=== PATIENT | female | born 1940 | race Caucasian/White ===

== ENCOUNTER 2017-07-15 07:02 | Observation (INO) | payer MEDICARE ==
[2017-07-15] VITALS (8 sets, daily range): BP systolic 101–151; BP diastolic 44–71
[~2017-07-15] VITALS: Ht 162.6 cm; Wt 42.2 kg
[~2017-07-15 07:02] MED LIST: ACTIGALL300 MG PO; ALENDRONATE70 MG PO; ALLEGRA180 MG PO; ALOE VERA500 MG PO; ALPRAZOLAM0.5 MG PO; AMITIZA24 MCG PO; AMLODIPINE2.5 MG PO; ASPIRIN81 MG PO; ATENOLOL25 MG PO; ATENOLOL50 MG PO; B6 FOLIC ACD PO; BENADRYL25 MG PO; BLACK COHOSH20 MG PO; CALCIUM600 M3 OR; CARAFATE PO; CIPROFLOXACN500 MG PO; CLARITHROMYC500 MG PO; CLONIDINE0.1 MG PO; COQ10100 MG PO; CORTISPORIN OTI10 ML AD; CORTISPORIN OTI10 ML AU; CYMBALTA30 MG PO; D3 MAXIMUM5000 UNI1; DAILY MULTIPLE1 TAB PO; DEPO-MEDROL80 MG/ML IM; DOXYCYCL HYC100 MG PO; FISH OIL1 CAP; FISH OIL1000 M1 PO; FLEXERIL OR; GLUCOSAMINE1000 M1 OR; GLUCOSAMINE1000 M1 PO; HAIR SKIN & NAI1 CHW; HYDROCO/APAP1 T11 PO; HYDROCODONE/ACE1 TA1 PO; HYDROCORT AC30 MG RE; HYDROCORTISONE2.5 % RE; HYDROXYZ HCL25 MG PO; LORTAB 5/3255 MG PO; MAALOX ADV1 CHW PO; MAGNACAPS100 MG OR; MAGNESIUM 250 M1 TAB PO; MEDDOSEPAK PO; MILK OF MAG30 ML/UDC PO; MILK THISTL2 PO; MIRALAX3350 NF PO; MULTIVITAM10 OR; MURO 1282 % OU; PANTOPRAZOLE SO40 MG PO; PRESERVISION PO; PRILOSEC20 MG/CAP PO; PRILOSEC40 MG PO; PROAIR HFA IN; PROBIOTI2; PROCARDIA XL30 MG PO; PROCTOSOL HC2.5 % RE; PROCTOSOL RE; SOLU-MEDROL125 MG PO; TENORMIN PO; TIZANIDINE4 MG PO; TRAMADOL HCL50 MG PO; TURMERIC CURCU500 MG PO; TYLENOL 500MG TAB PO; TYLENOL500 MG PO; ULTRAM50 MG PO; VALERIAN ROOT250 MG PO; VICODIN ES1 TAB OR; VICODIN1 TAB PO; VITAMIN B-12500 MCG PO; VITAMIN B6250 MG OR; VITAMIN C1000 MG OR; VITAMIN C500 M6 PO; VITAMIN D1000 UNI1 OR; VITAMIN D1000 UNIT PO; XANAX0.5 MG PO; ZANAFLEX4 M2 PO; ZESTRIL/PRINIV2.5 MG PO; ZINC50 M1 PO; ZITHROMAX500 MG PO; ZOSTAVAX SC; [UNRECOGNIZED DRUG - OTHER] PO; [UNRECOGNIZED DRUG - OTHER] RE
[2017-07-16 03:26] VITALS: BP 106/55
[2017-07-16 08:19] VITALS: BP 108/52
[2017-07-16 08:38] VITALS: BP 108/52
== END 2017-07-16 13:48 | disposition home or self-care (01) ==
LOC: ORM 07:02 → MS2 11:35
PROVIDERS: ADMIT Surgery; ATTEND Surgery
PROC: 0FT44ZZ Resection of Gallbladder, Percutaneous Endoscopic Approach (ICD-10-PCS; principal; 2017-07-15)
PROC: 0FB04ZX Excision of Liver, Percutaneous Endoscopic Approach, Diagnostic (ICD-10-PCS; 2017-07-15)
DX: K81.1 Chronic cholecystitis (principal); K74.0 Hepatic fibrosis; I10 Essential (primary) hypertension; F41.9 Anxiety disorder, unspecified
CPT/HCPCS: J1100; J2710

== ENCOUNTER 2018-01-22 12:09 | Day surgery (SDC) | payer MEDICARE ==
[~2018-01-22 12:09] MED LIST changes: +LORTAB5 PO
[2018-01-22] MEDS ORDERED: PREDNISODT10 PO (13:18)
[2018-01-22] MEDS ORDERED: PREDNISONE10 MG PO (13:19)
[2018-01-22 15:08] VITALS: BP 145/79
== END 2018-01-22 15:23 | disposition home or self-care (01) ==
LOC: ENDO 12:09
PROVIDERS: ATTEND Internal Medicine Gastroenterology
PROC: 0DB98ZX Excision of Duodenum, Via Natural or Artificial Opening Endoscopic, Diagnostic (ICD-10-PCS; principal; 2018-01-22)
DX: K29.70 Gastritis, unspecified, without bleeding (principal); K25.9 Gastric ulcer, unspecified as acute or chronic, without hemorrhage or perforation; K21.9 Gastro-esophageal reflux disease without esophagitis; D64.9 Anemia, unspecified; R19.7 Diarrhea, unspecified; K57.90 Diverticulosis of intestine, part unspecified, without perforation or abscess without bleeding; R79.89 Other specified abnormal findings of blood chemistry; I10 Essential (primary) hypertension; E78.00 Pure hypercholesterolemia, unspecified; K44.9 Diaphragmatic hernia without obstruction or gangrene; D13.0 Benign neoplasm of esophagus; Z87.11 Personal history of peptic ulcer disease

== ENCOUNTER 2018-02-08 16:50 | Observation (INO) | payer MEDICARE ==
[~2018-02-08] VITALS: Ht 160 cm; Wt 44.8 kg
--- NOTE | 2018-02-08 15:35 | NUR ---
RECEIVED PT A DIRECT ADMIT FROM DR. COLE'S OFFICE. PT ALERT AND ORIENTED. SKIN WARM AND DRY COLOR PINK. ASSESSMENT COMPLETED. NO RESP. DISTRESS NOTED. ROOM ARRANGEMENT EXPLAINED. CALL LIGHT WITHIN REACH.
[~2018-02-08 16:50] MED LIST changes: +PREDNISODT10 PO; +PREDNISONE10 MG PO
[2018-02-08 17:03] VITALS: BP 132/64
[2018-02-08 18:30] LABS: HEMATOCRIT 36.9 % (37.0-47.0); HEMOGLOBIN 12.3 g/dl (12.0-16.0); IMMATURE GRANULOCYTES 0.4 % (0.0-1.0); MEAN CELL VOLUME 100.5 fL CALC (80.0-100.0); MEAN CORPUSCULAR HGB 33.5 pG CALC (26.0-32.0); MEAN CORPUSCULAR HGB CONC 33.3 g/L CALC (32.0-36.0); NEUT# 4.18 thou/uL (2.00-7.15); RED BLOOD COUNT 3.67 mill/uL (4.20-5.60); RED CELL DISTRI WIDTH 13.2 % (11.5-15.5)
[2018-02-08 18:38] LABS: ANION GAP 14 (6-22 (CALC)); BUN 15 mg/dL (8-23); BUN/CREATININE RATIO 18 (12-20 (CALC)); CARBON DIOXIDE 28 mmol/l (22-30); CHLORIDE 101 mmol/l (95-108); CREATININE 0.8 mg/dL (0.5-1.0); GFR > 60 ML/MIN (>=60 (CALC)); GFR FOR AFR.AMER. > 60 ML/MIN (>=60 (CALC)); POTASSIUM 4.6 mmol/l (3.5-5.1); SODIUM 139 mmol/l (137-146)
[2018-02-08 19:30] VITALS: BP 137/64
--- NOTE | 2018-02-08 20:00 | NUR ---
PATIENT RESTING IN BED AT THIS TIME-AWAKE ALERT AND ORIENTEDX3. COLOR IS PALE. NEW IV SITE STARTED TO LEFT UPPER ARM-#22 GAUGE WITH GOOD BLOOD RETURN. PATIENT WITH C/O BACK PAIN FROM A FALL SHE HAD LAST THURSDAY. STATES SOME RELIEF FROM PAIN MEDS GIVEN EARLIER. SAFETY PRECAUTIONS REINFORCED. CALL LIGHT IN REACH. WILL CONT TO MONITOR.
--- NOTE | 2018-02-08 21:00 | NUR ---
EKG DONE AT BEDSIDE. PATIENT TO RADIOLOGY VIA WHEELCHAIR AND BACK FOR CXR AND LS-SPINE. PATIENT MIN ASSIST TO BR AND URINE SPEC OBTAINED AND SENT TO LAB. CALL LIGHT IN REACH. WILL CONT TO MONITOR.
--- NOTE | 2018-02-08 22:00 | NUR ---
PATIENT RESTING IN BED. C/O BACK PAIN AND MEDICATED WITH DEMEROL 25MG IVP ORDERED FOR PAIN. CALL LIGHT IN REACH. WILL CONT TO MONITOR.
[2018-02-08 22:15] LABS: URINE BILIRUBIN - DIPSTICK NEGATIVE (NEGATIVE); URINE BLOOD DIPSTICK NEGATIVE (NEGATIVE); URINE COLOR YELLOW; URINE GLUCOSE - DIPSTICK NEGATIVE (NEGATIVE); URINE KETONE NEGATIVE (NEGATIVE); URINE LEUK ESTERASE NEGATIVE (NEGATIVE); URINE NITRITE - DIPSTICK NEGATIVE (Negative); URINE PROTEIN - DIPSTICK NEGATIVE (NEG-TRACE); URINE UROBILINOGEN - DIPSTICK 0.2 E.U./dL (0.2)
[2018-02-08 22:16] LABS: URINE CLARITY CLEAR
--- NOTE | 2018-02-08 23:00 | NUR ---
PATIENT MEDICATED WITH XANAX .5MG PO PER REQUEST-STATES THAT SHE TAKES IT AT HOME TO HELP HER SLEEP. SAFETY PRECAUTIONS REINFORCED. CALL LIGHT IN REACH. WILL CONT TO MONITOR.
--- NOTE | 2018-02-09 01:00 | NUR ---
PATIENT APPEARS SLEEPING IN BED AT THIS TIME POSITIONED ON HER SIDE WITH EYES CLOSED. CALL LIGHT IN REACH. WILL CONT TO MONITOR.
--- NOTE | 2018-02-09 03:33 | NUR ---
PATIENT MEDICATED FOR LOW BACK PAIN-9/10 ON PAIN SCALE WITH LORTAB 5/325MG PO. PATIENT ASKING FOR ANOTHER XANAX-INSTRUCTED THAT THE XANAX IS [id number] Q8H AND THAT SHE RECIEVED IT AT 2300 LAST NIGHT-TOO EARLY. STATES UNDERSTANDING AND WILL TALK WITH MD IN THE AM. CALL LIGHT IN REACH. WILL CONT TO MONITOR.
[2018-02-09 04:40] VITALS: BP 131/68
[2018-02-09 06:01] LABS: HEMATOCRIT 35.2 % (37.0-47.0); HEMOGLOBIN 11.9 g/dl (12.0-16.0); IMMATURE GRANULOCYTES 0.3 % (0.0-1.0); MEAN CELL VOLUME 99.2 fL CALC (80.0-100.0); MEAN CORPUSCULAR HGB 33.5 pG CALC (26.0-32.0); MEAN CORPUSCULAR HGB CONC 33.8 g/L CALC (32.0-36.0); NEUT# 3.8 thou/uL (2.00-7.15); RED BLOOD COUNT 3.55 mill/uL (4.20-5.60); RED CELL DISTRI WIDTH 13.1 % (11.5-15.5)
[2018-02-09 06:18] LABS: ALBUMIN 3.8 g/dL (3.2-5.0); ALKALINE PHOSPHATASE 284 u/l (38-126); ANION GAP 12 (6-22 (CALC)); BILIRUBIN, TOTAL 0.9 mg/dL (0.0-1.4); BUN 16 mg/dL (8-23); BUN/CREATININE RATIO 20 (12-20 (CALC)); CARBON DIOXIDE 29 mmol/l (22-30); CHLORIDE 103 mmol/l (95-108); CREATININE 0.8 mg/dL (0.5-1.0); GFR > 60 ML/MIN (>=60 (CALC)); GFR FOR AFR.AMER. > 60 ML/MIN (>=60 (CALC)); POTASSIUM 4.7 mmol/l (3.5-5.1); SGOT/AST 55 u/l (9-36); SGPT/ALT 80 u/l (11-66); SODIUM 139 mmol/l (137-146); TOTAL PROTEIN 5.9 g/dL (6.3-8.2)
--- NOTE | 2018-02-09 07:30 | NUR ---
ASSESSMERN IS COMPLETED: IV SITE IS FREE FROM REDNESS OR EDEMA. NO DISTRESS NTOED. HR IS REG PULSES ARE STRONG. ABD IS SOFT WITH ACTIVE BS, CONTINUE TO OSBDERVE AND MONITOR
--- NOTE | 2018-02-09 12:15 | NUR ---
PT IS RELAXING IN BED WITH NO DISTRESS NOTED. IV SITE IS FREE FROM REDNESS OR EDEMA. CONTINUE TO OBSERVE AND MONITOR.
--- NOTE | 2018-02-09 13:00 | NUR ---
PT TRANSPORTED TO HAVE AN MRI COMPLETED VIA WC ACCOMAPNIED BY STAFF. AT 1345 PT RETURNED FROM HAVING MRI COMPLETED.
[2018-02-09 16:00] VITALS: BP 165/81
--- NOTE | 2018-02-09 16:16 | NUR ---
PT IS RELAXUING IN BED WITH NO DISTRESS NOTED. IV SITE IS FREE FROM REDNESS OR EDEMA.
--- NOTE | 2018-02-09 19:30 | NUR ---
PATIENT RESTING IN BED-AWAKE ALERT AND ANXIOUS-STATES THAT DR. COLE TOLD HER THAT SHE WOULD BE GOING HOME TODAY AND SHE NEEDS TO GO HOME AND TAKE CARE OF HER . PATIENT OFFERED XANAX FOR ANXIETY BUT SHE DECLINES AT THIS TIME. OFFERED REASSURANCE AND WILL CALL DR. COLE REGUARDING HER BP MEDS THAT SHE IS ALSO VERY CONCERNED ABOUT. HEP LOCK TO THE LEFT UPPER ARM INTACT AND APPEARS HEALTHY AT THIS TIME. SAFETY PRECAUTIONS REINFORCED.CALL LIGHT IN REACH. WILL CONT TO MONITOR.
[2018-02-09 20:20] VITALS: BP 175/84
--- NOTE | 2018-02-09 22:00 | NUR ---
PATIENT MEDICATED FOR PAIN WITH LORTAB AND FOR ANXIETY WITH XANAX ORDERED. PATIENT REFUSED HER SURFAK AND STATES THAT SHE HAS BEEN HAVING DIARRHEA TODAY. STATES THAT SHE ONLY TAKES SURFAK DAILY AT HOME NOT BID. PATIENT ALSO RECIEVED HER NORVASC THAT WAS ORDERED TO NIGHT BY DR. COLE. SAFETY PRECAUTIONS REINFORCED.CALL LIGHT IN REACH. WILL CONT TO MONITOR.
--- NOTE | 2018-02-10 00:06 | NUR ---
PATIENT RESTING IN BED-STATES THAT SHE GOT LITTLE OR NO RELIEF FROM LORTAB GIVEN EARLIER. PATIENT WITH 9/10 ON PAIN SCALE-MEDICATED WITH DEMEROL 25MG IVP ORDERED FOR PAIN. PATIENT REMAINS SOMEWHAT ANXIOUS EVEN AFTER TAKING XANAX ORDERED EARLIER. ENCOURAGED RELAXATION TECH IF POSSIBLE. SAFETY PRECAUTIONS REINFORCED.CALL LIGHT IN REACH. WILL CONT TO MONITOR.
[2018-02-10 00:15] VITALS: BP 125/59
--- NOTE | 2018-02-10 00:32 | NUR ---
PATIENT APPEARS SLEEPING POSITIONED ON HER SIDE WITH EYES CLOSED. CALL LIGHT IN REACH. WILL CONT TO MONITOR.
--- NOTE | 2018-02-10 04:24 | NUR ---
APPEARS SLEEPING AT THIS TIME POSITIONED ON HER SIDE. CALL LIGHT IN REACH. WILL CONT TO MONITOR.
[2018-02-10 04:31] VITALS: BP 153/77
--- NOTE | 2018-02-10 04:48 | NUR ---
PATIENT VS TAKEN AND RECORDED-C/O BACK PAIN 9/10 ON PAIN SCALE-MEDICATED WITH LORTAB 5/325MG PO. PATIENT ASKING FOR XANAX-ORDERED Q8H AND IS TOO EARLY FOR ANOTHER DOSE. WILL BE DUE AGAIN AT 0600 AND PATIENT INFORMED. CALL LIGHT IN REACH. WILL CONT TO MONITOR.
[2018-02-10 05:29] LABS: HEMATOCRIT 38.7 % (37.0-47.0); HEMOGLOBIN 13.3 g/dl (12.0-16.0); IMMATURE GRANULOCYTES 0.3 % (0.0-1.0); MEAN CELL VOLUME 97.5 fL CALC (80.0-100.0); MEAN CORPUSCULAR HGB 33.5 pG CALC (26.0-32.0); MEAN CORPUSCULAR HGB CONC 34.4 g/L CALC (32.0-36.0); NEUT# 2.87 thou/uL (2.00-7.15); RED BLOOD COUNT 3.97 mill/uL (4.20-5.60); RED CELL DISTRI WIDTH 12.9 % (11.5-15.5)
[2018-02-10 05:49] LABS: ALKALINE PHOSPHATASE 352 u/l (38-126); ANION GAP 18 (6-22 (CALC)); BILIRUBIN, TOTAL 0.8 mg/dL (0.0-1.4); BUN 23 mg/dL (8-23); BUN/CREATININE RATIO 28 (12-20 (CALC)); CARBON DIOXIDE 26 mmol/l (22-30); CHLORIDE 102 mmol/l (95-108); CREATININE 0.8 mg/dL (0.5-1.0); GFR > 60 ML/MIN (>=60 (CALC)); GFR FOR AFR.AMER. > 60 ML/MIN (>=60 (CALC)); POTASSIUM 4.4 mmol/l (3.5-5.1); SGOT/AST 79 u/l (9-36); SGPT/ALT 94 u/l (11-66); SODIUM 142 mmol/l (137-146); TOTAL PROTEIN 6.2 g/dL (6.3-8.2)
--- NOTE | 2018-02-10 06:00 | NUR ---
PATIENT MEDICATED WITH XANAX 0.5MG PO PER PATIENT REQUEST. RESTING IN BED. CALL LIGHT IN REACH. WILL CONT TO MONITOR.
--- NOTE | 2018-02-10 07:55 | NUR ---
ASSESSMENT IS COMPLETED: BREATH SOUNDS ARE CLEAR, BILATERALLY, NO C/O SOB,HR IS REG, PULSES ARE STRONG X4,ABD IS SOFT WITH ACTIVE BS. IV SITE IS FREE FROM REDNESS OR EDEMA. CONTINUE TO OSBERVE AND MONITOR.,
[2018-02-10 08:34] VITALS: BP 137/76
[2018-02-10 09:12] VITALS: BP 137/76
--- NOTE | 2018-02-10 12:15 | NUR ---
PT RECEIVED DISCHARGE INSTRUCTIONS AND VERBALIZED UNDERSTANDING,. APPRECIATED ALL THE CARE SHE RECEIVED FROM THE NURSES AND [employer] NETWORK MANAGER'S. IV SITE DISCONTINUED CATHETER INTACT. NO REDNESS OR EDEMA. Discharge instructions given. Patient verbalizes understanding of same. Discharged in stable condition via Wheelchair to Home with family. All belongings sent with pt.
== END 2018-02-10 12:19 | disposition home or self-care (01) ==
LOC: MS2 16:50
PROVIDERS: Internal Medicine; ADMIT Internal Medicine Geriatric Medicine; ATTEND Internal Medicine Geriatric Medicine
DX: M48.56XA Collapsed vertebra, not elsewhere classified, lumbar region, initial encounter for fracture (principal); M51.16 Intervertebral disc disorders with radiculopathy, lumbar region; I10 Essential (primary) hypertension; E03.9 Hypothyroidism, unspecified; M19.90 Unspecified osteoarthritis, unspecified site; M35.3 Polymyalgia rheumatica; I25.10 Atherosclerotic heart disease of native coronary artery without angina pectoris; K21.9 Gastro-esophageal reflux disease without esophagitis; F41.9 Anxiety disorder, unspecified; M41.9 Scoliosis, unspecified; Z98.1 Arthrodesis status

== ENCOUNTER 2018-05-23 23:33 | Emergency (ER) | payer MEDICARE ==
[~2018-05-23] VITALS: Ht 160 cm; Wt 45.6 kg
[2018-05-23] MEDS ORDERED: AMLODIPINE BESYL5 MG PO (23:46)
[2018-05-23] MEDS ORDERED: METOPROL TAR25 MG PO (23:47)
[2018-05-24 00:32] LABS: HEMATOCRIT 35.5 % (37.0-47.0); HEMOGLOBIN 11.8 g/dl (12.0-16.0); IMMATURE GRANULOCYTES 0.2 % (0.0-1.0); MEAN CELL VOLUME 100.3 fL CALC (80.0-100.0); MEAN CORPUSCULAR HGB 33.3 pG CALC (26.0-32.0); MEAN CORPUSCULAR HGB CONC 33.2 g/L CALC (32.0-36.0); NEUT# 1.91 thou/uL (2.00-7.15); RED BLOOD COUNT 3.54 mill/uL (4.20-5.60); RED CELL DISTRI WIDTH 13.1 % (11.5-15.5)
[2018-05-24 00:42] LABS: ANION GAP 11 (6-22 (CALC)); BUN 23 mg/dL (8-23); BUN/CREATININE RATIO 28 (12-20 (CALC)); CARBON DIOXIDE 24 mmol/l (22-30); CHLORIDE 106 mmol/l (95-108); CREATININE 0.8 mg/dL (0.5-1.0); GFR > 60 ML/MIN (>=60 (CALC)); GFR FOR AFR.AMER. > 60 ML/MIN (>=60 (CALC)); POTASSIUM 4.5 mmol/l (3.5-5.1); SODIUM 136 mmol/l (137-146)
[2018-05-24 01:14] LABS: TSH, 3RD GENERATION 3.07 uIU/mL (0.47 - 4.68)
[2018-05-24 01:41] LABS: URINE BILIRUBIN - DIPSTICK NEGATIVE (NEGATIVE); URINE BLOOD DIPSTICK NEGATIVE (NEGATIVE); URINE COLOR YELLOW; URINE GLUCOSE - DIPSTICK NEGATIVE (NEGATIVE); URINE KETONE NEGATIVE (NEGATIVE); URINE LEUK ESTERASE NEGATIVE (NEGATIVE); URINE NITRITE - DIPSTICK NEGATIVE (Negative); URINE PROTEIN - DIPSTICK NEGATIVE (NEG-TRACE); URINE UROBILINOGEN - DIPSTICK 0.2 E.U./dL (0.2)
[2018-05-24 01:48] LABS: URINE CLARITY SL CLOUDY
[2018-05-24 01:51] VITALS: BP 163/79
== END 2018-05-24 02:05 | disposition home or self-care (01) ==
LOC: ED 23:33
PROVIDERS: Family Medicine
DX: I10 Essential (primary) hypertension (principal)

== ENCOUNTER → 2018-09-01 | Outpatient (REF) | payer MEDICARE ==
[~2018-09-01] MED LIST changes: +AMLODIPINE BESYL5 MG PO; +METOPROL TAR25 MG PO
== END | disposition home or self-care (01) ==
LOC: ULTRASND 09:30
PROVIDERS: ATTEND Nurse Practitioner Family
DX: R59.1 Generalized enlarged lymph nodes (principal); M54.2 Cervicalgia

== ENCOUNTER 2020-02-23 | Emergency (ER) | payer MEDICARE, OTHER ==
[2020-02-23 18:09] LABS: HEMATOCRIT 34.5 % (37.0-47.0); HEMOGLOBIN 11.7 g/dl (12.0-16.0); IMMATURE GRANULOCYTES 0.3 % (0.0-5.0); MEAN CELL VOLUME 95.6 fL CALC (80.0-100.0); MEAN CORPUSCULAR HGB 32.4 pG CALC (26.0-32.0); MEAN CORPUSCULAR HGB CONC 33.9 g/dL CAL (32.0-36.0); NEUT# 4.04 thou/uL (2.00-7.15); RED BLOOD COUNT 3.61 mill/uL (4.20-5.60); RED CELL DISTRI WIDTH 13.1 % (11.5-15.5)
[2020-02-23 18:29] LABS: ALBUMIN 4.4 g/dL (3.2-5.0); ALKALINE PHOSPHATASE 257 u/l (38-126); ANION GAP 12 (6-22 (CALC)); BILIRUBIN, TOTAL 0.7 mg/dL (0.0-1.4); BUN 22 mg/dL (8-23); BUN/CREATININE RATIO 28 (12-20 (CALC)); CARBON DIOXIDE 25 mmol/l (22-30); CHLORIDE 101 mmol/l (95-108); CREATININE 0.8 mg/dL (0.5-1.0); GFR > 60 ML/MIN (>=60 (CALC)); GFR FOR AFR.AMER. > 60 ML/MIN (>=60 (CALC)); POTASSIUM 4.2 mmol/l (3.5-5.1); SGOT/AST 59 u/l (9-36); SODIUM 134 mmol/l (137-146); TOTAL PROTEIN 7.1 g/dL (6.3-8.2)
--- NOTE | 2020-03-01 14:00 | NUR ---
Notified patient of Negative Covid results. Advised patient to follow up with PCP and that she can return to the ED with any urgent issues. Advised patient to continue using Covid prevention practices such as washing hands and limiting contact with others. Patient verbalized understanding.
== END 2020-02-23 18:51 | disposition home or self-care (01) ==
PROVIDERS: Family Medicine
DX: J06.9 Acute upper respiratory infection, unspecified (principal); I10 Essential (primary) hypertension; Z20.828 Contact with and (suspected) exposure to other viral communicable diseases

== ENCOUNTER 2021-05-12 18:31 | Emergency (ER) | payer MEDICARE, OTHER ==
[~2021-05-12] VITALS: Ht 160 cm; Wt 43.0 kg
[2021-05-12] MEDS ORDERED: TRAMADOL HCL50 MG PO (19:38)
[2021-05-12 20:53] LABS: HEMATOCRIT 34.8 % (37.0-47.0); HEMOGLOBIN 11.2 g/dl (12.0-16.0); IMMATURE GRANULOCYTES 0.7 % (0.0-5.0); MEAN CORPUSCULAR HGB 32.2 pG CALC (26.0-32.0); MEAN CORPUSCULAR HGB CONC 32.2 g/dL CAL (32.0-36.0); NEUT# 1.6 thou/uL (2.00-7.15); RED BLOOD COUNT 3.48 mill/uL (4.20-5.60); RED CELL DISTRI WIDTH 13.2 % (11.5-15.5)
[2021-05-12 21:00] LABS: ALBUMIN 4.1 g/dL (3.2-5.0); ALKALINE PHOSPHATASE 196 u/l (38-126); ANION GAP 12 (6-22 (CALC)); BUN 20 mg/dL (8-23); BUN/CREATININE RATIO 26 (12-20 (CALC)); CARBON DIOXIDE 25 mmol/l (22-30); CHLORIDE 96 mmol/l (95-108); CREATININE 0.8 mg/dL (0.5-1.0); GFR > 60 ML/MIN (>=60 (CALC)); GFR FOR AFR.AMER. > 60 ML/MIN (>=60 (CALC)); POTASSIUM 4.3 mmol/l (3.5-5.1); SGOT/AST 58 u/l (9-36); SODIUM 129 mmol/l (137-146); TOTAL PROTEIN 6.9 g/dL (6.3-8.2)
[2021-05-12 21:08] LABS: BILIRUBIN, TOTAL 0.4 mg/dL (0.0-1.4)
[2021-05-12 21:26] LABS: ACT PARTIAL THROMBO TIME 25.9 SECONDS (20.0-32.5); INTERNATIONAL NORMALIZED RATIO 1.1 RATIO (0.7-1.3); PROTHROMBIN TIME 11.5 SECONDS (9.0-12.5)
[2021-05-12 23:15] VITALS: BP 194/91
== END 2021-05-12 23:14 | disposition short-term general hospital (02) ==
LOC: ED 18:31
PROVIDERS: Emergency Medicine
PROC: 0T9B70Z Drainage of Bladder with Drainage Device, Via Natural or Artificial Opening (ICD-10-PCS; principal; 2021-05-12)
DX: S72.001A Fracture of unspecified part of neck of right femur, initial encounter for closed fracture (principal); I10 Essential (primary) hypertension; W18.30XA Fall on same level, unspecified, initial encounter; Z20.822 Contact with and (suspected) exposure to COVID-19

== ENCOUNTER 2021-07-01 13:12 | Emergency (ER) | payer MEDICARE, OTHER ==
[2021-07-01 15:21] LABS: HEMOGLOBIN 11.5 g/dl (12.0-16.0); IMMATURE GRANULOCYTES 0.5 % (0.0-5.0); MEAN CELL VOLUME 101.7 fL CALC (80.0-100.0); MEAN CORPUSCULAR HGB 32.5 pG CALC (26.0-32.0); MEAN CORPUSCULAR HGB CONC 31.9 g/dL CAL (32.0-36.0); NEUT# 2.22 thou/uL (2.00-7.15); RED BLOOD COUNT 3.54 mill/uL (4.20-5.60); RED CELL DISTRI WIDTH 12.3 % (11.5-15.5)
[2021-07-01 15:44] LABS: ALBUMIN 4.2 g/dL (3.2-5.0); ANION GAP 13 (6-22 (CALC)); BUN 16 mg/dL (8-23); BUN/CREATININE RATIO 24 (12-20 (CALC)); CARBON DIOXIDE 25 mmol/l (22-30); CHLORIDE 101 mmol/l (95-108); CREATININE 0.7 mg/dL (0.5-1.0); GFR > 60 ML/MIN (>=60 (CALC)); GFR FOR AFR.AMER. > 60 ML/MIN (>=60 (CALC)); POTASSIUM 3.7 mmol/l (3.5-5.1); SGOT/AST 51 u/l (9-36); SODIUM 134 mmol/l (137-146); TOTAL PROTEIN 6.9 g/dL (6.3-8.2)
[2021-07-01 15:53] LABS: ALKALINE PHOSPHATASE 399 u/l (38-126); BILIRUBIN, TOTAL 0.7 mg/dL (0.0-1.4)
[2021-07-01 16:06] LABS: URINE BILIRUBIN - DIPSTICK NEGATIVE (NEGATIVE); URINE BLOOD DIPSTICK NEGATIVE (NEGATIVE); URINE COLOR YELLOW; URINE GLUCOSE - DIPSTICK NEGATIVE (NEGATIVE); URINE KETONE NEGATIVE (NEGATIVE); URINE LEUK ESTERASE NEGATIVE (NEGATIVE); URINE NITRITE - DIPSTICK NEGATIVE (Negative); URINE PH 7.5 (4.5-8.0); URINE PROTEIN - DIPSTICK NEGATIVE (NEG-TRACE); URINE UROBILINOGEN - DIPSTICK 0.2 E.U./dL (0.2)
[2021-07-01 17:47] VITALS: BP 140/66
== END 2021-07-01 17:52 ==
LOC: ED 13:12
DX: M54.5 Low back pain (principal); I10 Essential (primary) hypertension; Z20.822 Contact with and (suspected) exposure to COVID-19

== ENCOUNTER 2022-01-02 04:00 | Emergency (ER) | payer MEDICARE, OTHER ==
[~2022-01-02] VITALS: Ht 160 cm; Wt 45.0 kg
[2022-01-02] MEDS ORDERED: NORVASC5 M1 PO (04:29)
[2022-01-02] MEDS ORDERED: DIAZEPAM2 MG PO (04:30)
[2022-01-02] MEDS ORDERED: FUROSEMIDE20 MG PO (04:36)
[2022-01-02] MEDS ORDERED: METOPROLOL SUC200 MG PO ×2 (04:38→04:39)
[2022-01-02] MEDS ORDERED: OMEPRAZOLE10 MG PO (04:42)
[2022-01-02] MEDS ORDERED: OXYCODONE15 MG PO (04:43)
[2022-01-02] MEDS ORDERED: PRESERVISION AREDS PO (04:44)
[2022-01-02] MEDS ORDERED: CEROVIT2 PO (04:44)
[2022-01-02] MEDS ORDERED: DOK100 MG PO (04:45)
[2022-01-02] MEDS ORDERED: SLOW RELEASE IR45 MG PO (04:46)
[2022-01-02 06:18] LABS: HEMATOCRIT 37.6 % (37.0-47.0); HEMOGLOBIN 12.2 g/dl (12.0-16.0); IMMATURE GRANULOCYTES 0.3 % (0.0-5.0); MEAN CELL VOLUME 100.8 fL CALC (80.0-100.0); MEAN CORPUSCULAR HGB 32.7 pG CALC (26.0-32.0); MEAN CORPUSCULAR HGB CONC 32.4 g/dL CAL (32.0-36.0); NEUT# 1.08 thou/uL (2.00-7.15); RED BLOOD COUNT 3.73 mill/uL (4.20-5.60); RED CELL DISTRI WIDTH 12.3 % (11.5-15.5)
[2022-01-02 06:33] LABS: ALKALINE PHOSPHATASE 262 u/l (38-126); ANION GAP 11 (6-22 (CALC)); BILIRUBIN, TOTAL 0.9 mg/dL (0.0-1.4); BUN 13 mg/dL (8-23); BUN/CREATININE RATIO 21 (12-20 (CALC)); CARBON DIOXIDE 27 mmol/l (22-30); CHLORIDE 102 mmol/l (95-108); CREATININE 0.6 mg/dL (0.5-1.0); GFR > 60 ML/MIN (>=60 (CALC)); GFR FOR AFR.AMER. > 60 ML/MIN (>=60 (CALC)); POTASSIUM 3.6 mmol/l (3.5-5.1); SGOT/AST 51 u/l (9-36); SODIUM 137 mmol/l (137-146); TOTAL PROTEIN 6.8 g/dL (6.3-8.2)
[2022-01-02 06:46] LABS: ACT PARTIAL THROMBO TIME 26.1 SECONDS (20.0-32.5); PROTHROMBIN TIME 10.4 SECONDS (9.0-12.5)
[2022-01-02 07:01] VITALS: BP 162/79
== END 2022-01-02 07:57 ==
LOC: ED 04:00
DX: S50.12XA Contusion of left forearm, initial encounter (principal); S70.02XA Contusion of left hip, initial encounter; I10 Essential (primary) hypertension; F03.90 Unspecified dementia, unspecified severity, without behavioral disturbance, psychotic disturbance, mood disturbance, and anxiety; W05.0XXA Fall from non-moving wheelchair, initial encounter; Y92.099 Unspecified place in other non-institutional residence as the place of occurrence of the external cause